=== PATIENT | male | born 1955 | race Caucasian/White ===

== ENCOUNTER 2016-12-01 08:07 | Emergency (ER) | payer OTHER ==
[~2016-12-01] VITALS: Ht 177.8 cm; Wt 90.0 kg
[2016-12-01 08:12] VITALS: BP 161/92; PULSE 89; RESP 16; TEMP 98.2; O2SAT 98
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
[2016-12-01] MEDS ORDERED: ORPH100T99 PO (09:11)
[2016-12-01] MEDS ORDERED: PRED20 PO (09:11)
[2016-12-01] MEDS ORDERED: EXTR500C PO (09:11)
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
== END 2016-12-01 09:48 | disposition home or self-care (01) ==
LOC: NEPB 08:07
DX: M77.9 Enthesopathy, unspecified (principal); V29.9XXA Motorcycle rider (driver) (passenger) injured in unspecified traffic accident, initial encounter; Y99.8 Other external cause status
CPT/HCPCS: 29125; 73130